=== PATIENT | female | born 2000 | race Caucasian/White ===

== ENCOUNTER 2023-06-29 13:39 | Emergency (ER) | payer MEDICAID ==
[~2023-06-29] VITALS: Ht 157.5 cm; Wt 66.0 kg
[2023-06-29 13:51] VITALS: O2SAT 98
[2023-06-29 14:22] LABS: CLARITY URINE TURBID (CLEAR); COLOR URINE YELLOW (YELLOW); GLUCOSE URINE NEGATIVE (NEGATIVE); KETONES URINE NEGATIVE (NEGATIVE); LEUKOCYTE ESTERASE URINE 2+ (NEGATIVE); NITRITE URINE NEGATIVE (NEGATIVE); OCCULT BLOOD URINE NEGATIVE (NEGATIVE); PH URINE 8.5 (4.5-8.0); PROTEIN URINE 1+ (NEGATIVE); SPECIFIC GRAVITY URINE 1.024 (1.005-1.030)
[2023-06-29 15:02] LABS: MUCUS URINE 1+ /lpf (< = 2+); SQUAMOUS EPITHELIAL CELL URINE 3+ /lpf (RARE/1+)
[2023-06-29 15:03] LABS: BACTERIA URINE 3+; RBC URINE 0-2 /hpf (0-2); WBC URINE 0-2 /hpf (0-2)
[2023-06-29] MEDS ORDERED: METR-167 MT (16:40)
[2023-06-29] MEDS ORDERED: DOXY100C5 MT (16:40)
[2023-06-29] MEDS ORDERED: CEFTRIAXONE SODIUM 500 MG/VIAL IM ONE (16:45)
[2023-06-29] MEDS ORDERED: METRONIDAZOLE 500MG TABLET PO ONE (16:45)
[2023-06-29] MEDS ORDERED: DOXYCYCLINE HYCLATE 100MG CAPSULE PO ONE (16:45)
[2023-06-29] MEDS ORDERED: LIDOCAINE HCL 1% 20ML VIAL (Pyxis) INJ INFIL ONE (17:45)
[2023-06-29 17:47] VITALS: BP 123/76; PULSE 86; RESP 18; TEMP 98.2
== END 2023-06-29 17:48 | disposition home or self-care (01) ==
LOC: ER 13:39
DX: A64 Unspecified sexually transmitted disease (principal)
CPT/HCPCS: 99284; 81003; 81025; 96372; 87591; J0696; J3490